=== PATIENT | female | born 1980 | race Caucasian/White ===

== ENCOUNTER 2020-01-29 05:36 | Emergency (ER) | payer BC ==
[2020-01-29 05:47] VITALS: TEMP 98.7
--- NOTE | 2020-01-29 06:02 | ED ---
Abdominal Pain HPI - General Source: patient Mode of arrival: ambulatory Limitations: no limitations - History of Present Illness MD Complaint: abdominal pain -: hour(s) Location: epigastric Radiation: none Severity: moderate Quality: aching Consistency: intermittent, now resolved Improves With: nothing Worsens With: nothing Associated Symptoms: denies other symptoms - Related Data LMP (females 10-50): last week Patient : No <Haseeb Alegria - Last Filed: 01/29/20 05:59> <Colten Cheema - Last Filed: 01/29/20 08:18> - General Chief Complaint: Abdominal Pain Stated Complaint: Abdominal pain Time Seen by Provider: 01/29/20 05:52 - History of Present Illness Initial Comments: This patient is a 39-year-old woman who presents to be evaluated for upper abdominal pain. The patient states that symptoms had started 6 days ago. She states the pain had come on in the middle of the night and awakened her. She indicates the upper abdomen mainly in the epigastric area but also somewhat to both sides of that. She is not able to characterize it well stating that it just hurts. The pain is moderately intense and tends to last for a few hours and then recurs. She states that there is no pain when she goes to sleep and that but time she gets up in the morning there is no pain. She has not had associated symptoms, no nausea, vomiting, change in bowel movements or urination. Her last menstrual period was on approximately January 12 and was normal. Patient has not noted any worsening or relieving factors. (Haseeb Alegria) - Related Data Allergies Allergy/AdvReac Type Severity Reaction Status Date / Time erythromycin base Allergy Rash/Hives Verified 01/29/20 05:47 Sulfa (Sulfonamide Allergy Rash/Hives Verified 01/29/20 05:47 Antibiotics) Review of Systems ROS Other: All systems not noted in ROS Statement are negative. Constitutional: Denies: fever, chills Respiratory: Denies: cough, dyspnea Cardiovascular: Denies: chest pain, palpitations Gastrointestinal: Reports: abdominal pain. Denies: nausea, vomiting, diarrhea, constipation, melena, hematochezia Genitourinary: Denies: urgency, dysuria, hematuria, discharge Musculoskeletal: Denies: back pain Skin: Denies: rash Neurological: Denies: headache <Haseeb Alegria - Last Filed: 01/29/20 05:59> ROS Other: All systems not noted in ROS Statement are negative. <Colten Cheema - Last Filed: 01/29/20 08:18> ROS Statement: Those systems with pertinent positive or pertinent negative responses have been documented in the HPI. Past Medical History History of Any Multi-Drug Resistant Organisms: None Reported Past Surgical History: Section Past Psychological History: No Psychological Hx Reported Smoking Status: Former smoker Past Alcohol Use History: Rare Past Drug Use History: None Reported <RajiHaseeb - Last Filed: 01/29/20 05:59> General Exam Limitations: no limitations General appearance: alert, in no apparent distress Head exam: Present: atraumatic, normocephalic Eye exam: Present: normal appearance. Absent: scleral icterus, conjunctival injection ENT exam: Present: normal oropharynx Neck exam: Present: normal inspection Respiratory exam: Present: normal lung sounds bilaterally. Absent: respiratory distress, wheezes, rales, rhonchi, stridor Cardiovascular Exam: Present: regular rate, normal rhythm, normal heart sounds. Absent: systolic murmur, diastolic murmur, rubs, gallop GI/Abdominal exam: Present: soft, tenderness, normal bowel sounds. Absent: distended, guarding, rebound, rigid, mass, pulsatile mass, hernia Extremities exam: Present: normal inspection, normal capillary refill. Absent: pedal edema, calf tenderness Back exam: Present: normal inspection. Absent: CVA tenderness (R), CVA tenderness (L) Neurological exam: Present: alert Skin exam: Present: warm, dry, intact, normal color. Absent: rash <RajiHaseeb - Last Filed: 01/29/20 05:59> Course Vital Signs 01/29/20 05:43 Temperature 98.7 F Pulse Rate 90 Respiratory 18 Rate Blood Pressure 164/97 O2 Sat by Pulse 98 Oximetry Medical Decision Making - Lab Data Result diagrams: 01/29/20 06:27 01/29/20 06:27 - Radiology Data Radiology results: report reviewed (Doppler ultrasound suspicious for sludge) <Colten Cheema - Last Filed: 01/29/20 08:18> - Medical Decision Making Patient reevaluated by myself, Dr. Cheema. Patient resting comfortably in bed, symptoms never resolved. Abdomen soft with minimal tenderness in the epigastric region. Results and ultrasound reviewed. Patient updated. Patient is comfortable with discharge home and would prefer to be discharged rather than discussing any further intervention at this point. Dorsalis pedis pulses 2/4 bilateral. (Colten Cheema) - Lab Data Lab Results 01/29/20 01/29/20 01/29/20 Range/Units 06:27 06:27 06:47 WBC 13.0 H (3.8-10.6) k/uL RBC 4.36 (3.80-5.40) m/uL Hgb 12.7 (11.4-16.0) gm/dL Hct 39.8 (34.0-46.0) % MCV 91.3 (80.0-100.0) fL MCH 29.2 (25.0-35.0) pg MCHC 32.0 (31.0-37.0) g/dL RDW 13.0 (11.5-15.5) % Plt Count 356 (150-450) k/uL Neutrophils % 75 % Lymphocytes % 18 % Monocytes % 3 % Eosinophils % 2 % Basophils % 0 % Neutrophils # 9.7 H (1.3-7.7) k/uL Lymphocytes # 2.4 (1.0-4.8) k/uL Monocytes # 0.4 (0-1.0) k/uL Eosinophils # 0.3 (0-0.7) k/uL Basophils # 0.0 (0-0.2) k/uL Sodium 138 (137-145) mmol/L Potassium 4.9 (3.5-5.1) mmol/L Chloride 106 (98-107) mmol/L Carbon Dioxide 20 L (22-30) mmol/L Anion Gap 12 mmol/L BUN 18 H (7-17) mg/dL Creatinine 0.72 (0.52-1.04) mg/dL Est GFR (CKD-EPI)AfAm >90 (>60 ml/min/1.73 sqM) Est GFR (CKD-EPI)NonAf >90 (>60 ml/min/1.73 sqM) Glucose 105 H (74-99) mg/dL Calcium 9.8 (8.4-10.2) mg/dL Total Bilirubin 0.3 (0.2-1.3) mg/dL AST 25 (14-36) U/L ALT 18 (4-34) U/L Alkaline Phosphatase 68 (38-126) U/L Total Protein 8.2 (6.3-8.2) g/dL Albumin 4.5 (3.5-5.0) g/dL Urine Color Yellow Urine Appearance Cloudy H (Clear) Urine pH 5.0 (5.0-8.0) Ur Specific [place] 1.026 (1.001-1.035) Urine Protein Negative (Negative) Urine Glucose (UA) Negative (Negative) Urine Ketones Negative (Negative) Urine Blood Negative (Negative) Urine Nitrite Negative (Negative) Urine Bilirubin Negative (Negative) Urine Urobilinogen <2.0 (<2.0) mg/dL Ur Leukocyte Esterase Negative (Negative) Urine RBC 2 (0-5) /hpf Urine WBC 1 (0-5) /hpf Ur Squamous Epith Cells 3 (0-4) /hpf Urine Mucus Rare H (None) /hpf Urine HCG, Qual (Not Detectd) 01/29/20 Range/Units 06:47 WBC (3.8-10.6) k/uL RBC (3.80-5.40) m/uL Hgb (11.4-16.0) gm/dL Hct (34.0-46.0) % MCV (80.0-100.0) fL MCH (25.0-35.0) pg MCHC (31.0-37.0) g/dL RDW (11.5-15.5) % Plt Count (150-450) k/uL Neutrophils % % Lymphocytes % % Monocytes % % Eosinophils % % Basophils % % Neutrophils # (1.3-7.7) k/uL Lymphocytes # (1.0-4.8) k/uL Monocytes # (0-1.0) k/uL Eosinophils # (0-0.7) k/uL Basophils # (0-0.2) k/uL Sodium (137-145) mmol/L Potassium (3.5-5.1) mmol/L Chloride (98-107) mmol/L Carbon Dioxide (22-30) mmol/L Anion Gap mmol/L BUN (7-17) mg/dL Creatinine (0.52-1.04) mg/dL Est GFR (CKD-EPI)AfAm (>60 ml/min/1.73 sqM) Est GFR (CKD-EPI)NonAf (>60 ml/min/1.73 sqM) Glucose (74-99) mg/dL Calcium (8.4-10.2) mg/dL Total Bilirubin (0.2-1.3) mg/dL AST (14-36) U/L ALT (4-34) U/L Alkaline Phosphatase (38-126) U/L Total Protein (6.3-8.2) g/dL Albumin (3.5-5.0) g/dL Urine Color Urine Appearance (Clear) Urine pH (5.0-8.0) Ur Specific [place] (1.001-1.035) Urine Protein (Negative) Urine Glucose (UA) (Negative) Urine Ketones (Negative) Urine Blood (Negative) Urine Nitrite (Negative) Urine Bilirubin (Negative) Urine Urobilinogen (<2.0) mg/dL Ur Leukocyte Esterase (Negative) Urine RBC (0-5) /hpf Urine WBC (0-5) /hpf Ur Squamous Epith Cells (0-4) /hpf Urine Mucus (None) /hpf Urine HCG, Qual Not Detected (Not Detectd) Disposition <Haseeb Alegria - Last Filed: 01/29/20 05:59> Is patient prescribed a controlled substance at d/c from ED?: No Time of Disposition: 08:18 <Colten Cheema - Last Filed: 01/29/20 08:18> Clinical Impression: Biliary colic, Epigastric pain Disposition: HOME SELF-CARE Condition: Stable Instructions (If sedation given, give patient instructions): Biliary Colic (ED), Gallstones (ED), Acute Abdominal Pain (ED) Additional Instructions: [id number] Pepcid. Please follow-up with surgeon hydration plant operator in the next couple days for recheck, number provided. Return for increased pain, vomiting, fevers, worsening symptoms or other concerns. Avoid high fat foods. Avoid large meals. Referrals: Ofe Vickers DO [Doctor of Osteopathic Medicine] - 1-2 days Power Salguero [STAFF PHYSICIAN] - 1-2 days
[2020-01-29 06:42] LABS: Basophils % (A) 0 %; Eosinophils # (A) 0.3 k/uL (0-0.7); Eosinophils % (A) 2 %; HCT 39.8 % (34.0-46.0); HGB 12.7 gm/dL (11.4-16.0); Lymphocytes # (A) 2.4 k/uL (1.0-4.8); Lymphocytes % (A) 18 %; MCH 29.2 pg (25.0-35.0); MCV 91.3 fL (80.0-100.0); Mean Platelet Volume 7.2; Monocytes # (A) 0.4 k/uL (0-1.0); Monocytes % (A) 3 %; Neutrophils # (A) 9.7 k/uL (1.3-7.7); Neutrophils % (A) 75 %; Platelet Count 356 k/uL (150-450); RBC 4.36 m/uL (3.80-5.40)
[2020-01-29 06:50] LABS: Appearance,Urine Cloudy (Clear); Bilirubin,Urine Negative (Negative); Blood,Urine Negative (Negative); Color,Urine Yellow; Glucose,Urine (UA) Negative (Negative); Ketones,Urine Negative (Negative); Leukocyte Esterase,Urine Negative (Negative); Mucus,Urine Rare /hpf; Nitrite,Urine Negative (Negative); Protein,Urine Negative (Negative); RBC,Urine 2 /hpf (0-5); Specific Gravity,Urine 1.026 (1.001-1.035); Squamous Epithelial Cell,Urine 3 /hpf (0-4); Urobilinogen,Urine <2.0 mg/dL (<2.0); WBC,Urine 1 /hpf (0-5)
[2020-01-29 06:52] LABS: ALT 18 U/L (4-34); AST 25 U/L (14-36); African American GFR (CKD) >90 (>60 ml/min/1.73 sqM); Albumin 4.5 g/dL (3.5-5.0); Alkaline Phosphatase 68 U/L (38-126); Anion Gap 12 mmol/L; Blood Urea Nitrogen 18 mg/dL (7-17); Calcium 9.8 mg/dL (8.4-10.2); Carbon Dioxide 20 mmol/L (22-30); Chloride 106 mmol/L (98-107); Glucose 105 mg/dL (74-99); Non-African American GFR(CKD) >90 (>60 ml/min/1.73 sqM); Potassium 4.9 mmol/L (3.5-5.1); Sodium 138 mmol/L (137-145); Total Bilirubin 0.3 mg/dL (0.2-1.3); Total Protein 8.2 g/dL (6.3-8.2)
--- NOTE | 2020-01-29 08:07 | US ---
EXAMINATION TYPE: US abdomen limited DATE OF EXAM: 01/29/2020 COMPARISON: NONE CLINICAL HISTORY: Attention RUQ, suspect biliary dz. Intermittent abdomen pain and N/V x 4 days, symp toms only happen at night EXAM MEASUREMENTS: Liver Length: 14.8 cm Gallbladder Wall: 0.3 cm CBD: 0.3 cm Right Kidney: 9.0 x 4.0 x 4.6 cm Pancreas: visualized portions wnl, limited by overlying bowel gas Liver: wnl Gallbladder: low level echoes seen, possible sludge, wall borderline thickened at 0.3cm Evidence for sonographic Malagon's sign: no CBD: visualized portions wnl, limited by overlying bowel gas Right Kidney: wnl The pancreas is poorly visualized. The liver is normal in size without biliary dilatation. There are low level echoes within the gallbladder but no definite sludge or calculi are seen. The gal lbladder wall is upper limits of normal at 3 mm. The distal common hepatic duct measures 3 mm. There is no sonographic Malagon's sign. The right kidney is unremarkable. IMPRESSION: LOW-LEVEL ECHOES WITHIN THE GALLBLADDER MAY REPRESENT MINIMAL SLUDGE. NO CALCULI ARE SEEN.
[2020-01-29 08:29] VITALS: BP 132/76; PULSE 88; RESP 16
== END 2020-01-29 08:28 | disposition home or self-care (01) ==
LOC: EC 05:36
DX: K80.50 Calculus of bile duct without cholangitis or cholecystitis without obstruction (principal); Z87.891 Personal history of nicotine dependence; Z88.1 Allergy status to other antibiotic agents; Z88.2 Allergy status to sulfonamides
CPT/HCPCS: 36415; 76705; 80053; 81001; 81025; 85025; 99284

== ENCOUNTER 2023-06-02 03:50 | Emergency (ER) | payer BC ==
[2023-06-02 03:59] VITALS: TEMP 97.7
[2023-06-02] MEDS ORDERED: SODIUM CHLORIDE 0.9% 1,000 ML IV STA (04:23)
[2023-06-02] MEDS ORDERED: ONDANSETRON 4 MG/2 ML VIAL IVP STA (04:23)
[2023-06-02] MEDS ORDERED: KETOROLAC 15 MG/ML 1 ML VIAL IVP STA (04:23)
--- NOTE | 2023-06-02 04:25 | ED ---
Abdominal Pain HPI - General Source: patient, RN notes reviewed, old records reviewed Mode of arrival: ambulatory Limitations: no limitations - History of Present Illness MD Complaint: abdominal pain -: hour(s) Location: LUQ, RUQ, epigastric Radiation: none Migration to: epigastric Severity: moderate Severity scale (1-10): 7 Quality: fullness, sharp Consistency: intermittent Improves With: nothing Worsens With: nothing Associated Symptoms: nausea Treatments Prior to Arrival: other (0) <Delgado Curiel - Last Filed: 06/02/23 06:12> <Pietro Toro - Last Filed: 06/02/23 08:11> - General Chief Complaint: Abdominal Pain Stated Complaint: Abd Pain Time Seen by Provider: 06/02/23 04:22 - History of Present Illness Initial Comments: This is a 42-year-old female DF for evaluation today. Patient presents today for evaluation of severe abdominal pain epigastric abdominal pain left upper quadrant abdominal pain positive nausea with nausea vomiting no travel show sick contacts no other complaints. No fevers. Patient has history of gallbladder issues in the past as well as gastritis and ulcers. This feels similar to those episodes of pain but much worse. Most recent episode occurred about 3 years ago. (Delgado Curiel) - Related Data Allergies Allergy/AdvReac Type Severity Reaction Status Date / Time erythromycin base Allergy Rash/Hives Verified 06/02/23 03:59 Sulfa (Sulfonamide Allergy Rash/Hives Verified 06/02/23 03:59 Antibiotics) Review of Systems ROS Other: All systems not noted in ROS Statement are negative. <Delgado Curiel - Last Filed: 06/02/23 06:12> ROS Other: All systems not noted in ROS Statement are negative. <Pietro Toro - Last Filed: 06/02/23 08:11> ROS Statement: Those systems with pertinent positive or pertinent negative responses have been documented in the HPI. Past Medical History Past Medical History: No Reported History History of Any Multi-Drug Resistant Organisms: None Reported Past Surgical History: Section Past Psychological History: Anxiety Smoking Status: Never smoker Past Alcohol Use History: Rare Past Drug Use History: None Reported <Delgado Curiel - Last Filed: 06/02/23 06:12> General Exam Limitations: no limitations General appearance: alert, in no apparent distress Head exam: Present: atraumatic, normocephalic, normal inspection Eye exam: Present: normal appearance, PERRL, EOMI. Absent: scleral icterus, conjunctival injection, periorbital swelling ENT exam: Present: normal exam, mucous membranes moist Neck exam: Present: normal inspection. Absent: tenderness, meningismus, lym phadenopathy Respiratory exam: Present: normal lung sounds bilaterally. Absent: respiratory distress, wheezes, rales, rhonchi, stridor Cardiovascular Exam: Present: regular rate, normal rhythm, normal heart sounds. Absent: systolic murmur, diastolic murmur, rubs, gallop, clicks GI/Abdominal exam: Present: soft, normal bowel sounds. Absent: distended, tenderness, guarding, rebound, rigid Extremities exam: Present: normal inspection, full ROM, normal capillary refill. Absent: tenderness, pedal edema, joint swelling, calf tenderness Back exam: Present: normal inspection Neurological exam: Present: alert, oriented X3, CN II-XII intact Psychiatric exam: Present: normal affect, normal mood Skin exam: Present: warm, dry, intact, normal color. Absent: rash <Delgado Curiel - Last Filed: 06/02/23 06:12> Course <Delgado Curiel - Last Filed: 06/02/23 06:12> Vital Signs 06/02/23 06/02/23 06/02/23 03:58 06:15 07:52 Temperature 97.7 F Pulse Rate 86 72 71 Respiratory 18 16 18 Rate Blood Pressure 137/77 119/90 109/67 O2 Sat by Pulse 98 97 98 Oximetry - Reevaluation(s) Reevaluation #1: 06/02/23 06:13 Medical record is reviewed. (Delgado Curiel) Reevaluation #2: 06/02/23 06:13 Patient symptoms are improved (Delgado Curiel) Reevaluation #3: 06/02/23 06:13 Patient informed results questions answered (Delgado Curiel) Medical Decision Making - Lab Data Result diagrams: 06/02/23 05:07 <Delgado Curiel - Last Filed: 06/02/23 06:12> - Lab Data Result diagrams: 06/02/23 05:07 06/02/23 06:12 <Pietro Toro N - Last Filed: 06/02/23 08:11> - Medical Decision Making Was pt. sent in by a medical professional or institution (DENI Sanches, RELAY CHECKER, urgent care, hospital, or senior care...) When possible be specific @ -No Did you speak to anyone other than the patient for history (EMS, parent, family, police, friend...)? What history was obtained from this source @ -No Did you review nursing and triage notes (agree or disagree)? Why? @ -I reviewed and agree with nursing and triage notes Were old charts reviewed (outside hosp., previous admission, EMS record, old EKG, old radiological studies, urgent care reports/EKG's, senior care records)? Report findings @ -No old charts were reviewed Differential Diagnosis (chest pain, altered mental status, abdominal pain women, abdominal pain men, vaginal bleeding, weakness, fever, dyspnea, syncope, headache, dizziness, GI bleed, back pain, seizure, CVA, palpatations, mental health, musculoskeletal)? @ Differential Abdominal Pain Women: Appendicitis, Cholecystitis, diverticulosis, ischemic bowel, pancreatitis, hepatitis, UTI, gastroenteritis, AAA, incarcerated hernia, bowel obstruction, constipation, inflammatory bowel, hepatitis, peptic ulcer disease, splenic infarction, perforated viscus, vulvitis, ovarian torsion, PID, kidney stone, placenta abruption, this is not meant to be an all-inclusive list EKG interpreted by me (3pts min.). @ -As above X-rays interpreted by me (1pt min.). @ -None done CT interpreted by me (1pt min.). @ -CT abdomen pelvis without acute abnormality U/S interpreted by me (1pt. min.). @ -[Ultrasound showing stone in the gallbladder neck no pericholecystic fluid, no wall thickening What testing was considered but not performed or refused? (CT, X-rays, U/S, labs)? Why? @ -None What meds were considered but not given or refused? Why? @ -None Did you discuss the management of the patient with other professionals (professionals i.e. DENI Sanches, RELAY CHECKER, lab, RT, psych nurse, social media assistant, charge machine operator, teacher, grant officer, casework supervisor)? Give summary @ -No Was smoking cessation discussed for >3mins.? @ -No Was critical care preformed (if so, how long)? @ -No Were there social determinants of health that impacted care today? How? (Homelessness, low income, unemployed, alcoholism, drug addiction, transportation, low edu. Level, literacy, decrease access to med. care, correction, rehab)? @ -No Was there de-escalation of care discussed even if they declined (Discuss DNR or withdrawal of care, Hospice)? DNR status @ -No What co-morbidities impacted this encounter? (DM, HTN, Smoking, COPD, CAD, Ca ncer, CVA, ARF, Chemo, Hep., AIDS, mental health diagnosis, sleep apnea, morbid obesity)? @ -None Was patient admitted / discharged? Hospital course, mention meds given and route, prescriptions, significant lab abnormalities, going to OR and other pertinent info. @ Patient's care was signed out at shift change awaiting ultrasound imaging of the gallbladder. There is a gallstone in the gallbladder neck without signs of acute cholecystitis. I did reevaluate the patient she is resting comfortably. No vomiting. Pain is resolved. She is nontender nondistended on exam. She is felt to be stable for outpatient referral to general surgery. Strict return parameters including worsening pain, vomiting or fever. Undiagnosed new problem with uncertain prognosis? @ -No Drug Therapy requiring intensive monitoring for toxicity (Heparin, Nitro, Insulin, Cardizem)? @ -No Were any procedures done? @ -No Diagnosis/symptom? @ -Symptomatic gallstone Acute, or Chronic, or Acute on Chronic? @ -Acute Uncomplicated (without systemic symptoms) or Complicated (systemic symptoms)? @ -default Side effects of treatment? @ -No Exacerbation, Progression, or Severe Exacerbation? @ -No Poses a threat to life or bodily function? How? (Chest pain, USA, IA, pneumonia, PE, COPD, DKA, ARF, appy, cholecystitis, CVA, Diverticulitis, Homicidal, Suicidal, threat to staff... and all critical care pts) @ -[Low risk at this time (Pietro Toro) - Lab Data Lab Results 06/02/23 06/02/23 06/02/23 Range/Units 05:07 05:07 06:12 WBC 8.9 (3.8-10.6) k/uL RBC 4.52 (3.80-5.40) m/uL Hgb 13.3 (11.4-16.0) gm/dL Hct 40.5 (34.0-46.0) % MCV 89.5 (80.0-100.0) fL MCH 29.5 (25.0-35.0) pg MCHC 33.0 (31.0-37.0) g/dL RDW 13.0 (11.5-15.5) % Plt Count 398 (150-450) k/uL MPV 7.7 Neutrophils % 56 % Lymphocytes % 31 % Monocytes % 6 % Eosinophils % 5 % Basophils % 1 % Neutrophils # 5.0 (1.3-7.7) k/uL Lymphocytes # 2.8 (1.0-4.8) k/uL Monocytes # 0.5 (0-1.0) k/uL Eosinophils # 0.4 (0-0.7) k/uL Basophils # 0.0 (0-0.2) k/uL Sodium 136 L (137-145) mmol/L Potassium 4.6 (3.5-5.1) mmol/L Chloride 107 (98-107) mmol/L Carbon Dioxide 21 L (22-30) mmol/L Anion Gap 8 mmol/L BUN 17 (7-17) mg/dL Creatinine 0.79 (0.52-1.04) mg/dL Est GFR (CKD-EPI)AfAm >90 (>60 ml/min/1.73 sqM) Est GFR (CKD-EPI)NonAf >90 (>60 ml/min/1.73 sqM) Glucose 89 (74-99) mg/dL Calcium 8.4 (8.4-10.2) mg/dL Total Bilirubin 0.5 (0.2-1.3) mg/dL AST 33 (14-36) U/L ALT 20 (4-34) U/L Alkaline Phosphatase 53 (38-126) U/L Total Protein 7.1 (6.3-8.2) g/dL Albumin 3.9 (3.5-5.0) g/dL Amylase 61 (30-110) U/L Lipase 87 (23-300) U/L Urine Color Yellow Urine Appearance Clear (Clear) Urine pH 6.5 (5.0-8.0) Ur Specific [place] 1.015 (1.001-1.035) Urine Protein Negative (Negative) Urine Glucose (UA) Negative (Negative) Urine Ketones Negative (Negative) Urine Blood Negative (Negative) Urine Nitrite Negative (Negative) Urine Bilirubin Negative (Negative) Urine Urobilinogen <2.0 (<2.0) mg/dL Ur Leukocyte Esterase Negative (Negative) Disposition <Delgado Curiel B - Last Filed: 06/02/23 06:12> Is patient prescribed a controlled substance at d/c from ED?: No Time of Disposition: 08:10 <Pietro Toro - Last Filed: 06/02/23 08:11> Clinical Impression: Abdominal pain, Biliary colic, Gallstone Disposition: HOME SELF-CARE Condition: Good Instructions (If sedation given, give patient instructions): Biliary Colic (ED ), Gallstones (ED) Referrals: Roosevelt Rodrigues MD [Primary Care Provider] - 1-2 days Daniel Chase MD [Medical Doctor] - 1-2 days
[2023-06-02 05:59] LABS: Basophils % (A) 1 %; Eosinophils # (A) 0.4 k/uL (0-0.7); Eosinophils % (A) 5 %; HCT 40.5 % (34.0-46.0); HGB 13.3 gm/dL (11.4-16.0); Lymphocytes # (A) 2.8 k/uL (1.0-4.8); Lymphocytes % (A) 31 %; MCH 29.5 pg (25.0-35.0); MCV 89.5 fL (80.0-100.0); Mean Platelet Volume 7.7; Monocytes # (A) 0.5 k/uL (0-1.0); Monocytes % (A) 6 %; Neutrophils % (A) 56 %; Platelet Count 398 k/uL (150-450); RBC 4.52 m/uL (3.80-5.40); WBC 8.9 k/uL (3.8-10.6)
[2023-06-02 06:04] LABS: Appearance,Urine Clear (Clear); Bilirubin,Urine Negative (Negative); Blood,Urine Negative (Negative); Color,Urine Yellow; Glucose,Urine (UA) Negative (Negative); Ketones,Urine Negative (Negative); Leukocyte Esterase,Urine Negative (Negative); Nitrite,Urine Negative (Negative); PH, Urine 6.5 (5.0-8.0); Protein,Urine Negative (Negative); Specific Gravity,Urine 1.015 (1.001-1.035); Urobilinogen,Urine <2.0 mg/dL (<2.0)
[2023-06-02 06:33] LABS: ALT 20 U/L (4-34); AST 33 U/L (14-36); African American GFR (CKD) >90 (>60 ml/min/1.73 sqM); Albumin 3.9 g/dL (3.5-5.0); Alkaline Phosphatase 53 U/L (38-126); Amylase 61 U/L (30-110); Anion Gap 8 mmol/L; Blood Urea Nitrogen 17 mg/dL (7-17); Calcium 8.4 mg/dL (8.4-10.2); Carbon Dioxide 21 mmol/L (22-30); Chloride 107 mmol/L (98-107); Glucose 89 mg/dL (74-99); Lipase 87 U/L (23-300); Non-African American GFR(CKD) >90 (>60 ml/min/1.73 sqM); Potassium 4.6 mmol/L (3.5-5.1); Sodium 136 mmol/L (137-145); Total Bilirubin 0.5 mg/dL (0.2-1.3); Total Protein 7.1 g/dL (6.3-8.2)
--- NOTE | 2023-06-02 07:20 | CT ---
EXAMINATION TYPE: CT abdomen pelvis w con CT DLP: 843 mGycm, Automated exposure control for dose reduction was used. DATE OF EXAM: 06/02/2023 6:47 AM COMPARISON: Gallbladder ultrasound same day CLINICAL INDICATION:Female, 42 years old with history of abdominal pain; LUQ pain TECHNIQUE: Axial CT of the abdomen and pelvis. Sagittal and coronal reformats were created on a [employer] workstation. Contrast used:100 mL of Isovue 300 with IV Contrast, (none if empty) Oral contrast used: without Oral Contrast (none if empty) FINDINGS: LOWER CHEST: Unremarkable ABDOMEN LIVER: Unremarkable GALLBLADDER AND BILE DUCTS: Unremarkable. PANCREAS: Unremarkable. SPLEEN: Unremarkable. ADRENAL GLANDS: Unremarkable. KIDNEYS AND URETERS: No evidence of hydronephrosis or renal calculus. The ureters are unremarkable. PELVIS BLADDER: Unremarkable REPRODUCTIVE: Retroverted uterus. ABDOMEN & PELVIS STOMACH AND BOWEL: No evidence of bowel obstruction. PERITONEUM/RETROPERITONEUM: No evidence of pneumoperitoneum or free fluid. VASCULATURE: No evidence of aortic aneurysm. MUSCULOSKELETAL: No acute osseous abnormalities LYMPH NODES: No gross evidence for lymphadenopathy. SOFT TISSUE/ABDOMINAL WALL: Fat-containing umbilical hernia. IMPRESSION: No evidence for acute left upper quadrant process to explain the patient's pain.
--- NOTE | 2023-06-02 07:50 | US ---
EXAMINATION TYPE: US gallbladder DATE OF EXAM: 06/02/2023 COMPARISON: NONE CLINICAL INDICATION: Female, 42 years old with history of pain; abd pain for the past week TECHNIQUE: Multiple sonographic images of the right upper quadrant are obtained. FINDINGS: EXAM MEASUREMENTS: Liver Length: 14.2 cm Gallbladder Wall: 0.2 cm CBD: 0.7 cm Right Kidney: 9.4 x 4.2 x 5.5 cm Pancreas: wnl Liver: wnl Gallbladder: 1.6cm neck stone that did not move when rolling , no evidence for pericholecystic fluid or wall thickening. Evidence for sonographic Malagon's sign: no CBD: wnl Right Kidney: wnl IMPRESSION: Gallbladder stone in the gallbladder neck which was nonmobile.
[2023-06-02 07:53] VITALS: BP 109/67; PULSE 71; RESP 18
== END 2023-06-02 08:21 | disposition home or self-care (01) ==
LOC: EC 03:50
DX: K80.70 Calculus of gallbladder and bile duct without cholecystitis without obstruction (principal); Z86.59 Personal history of other mental and behavioral disorders; Z88.2 Allergy status to sulfonamides; Z88.6 Allergy status to analgesic agent
CPT/HCPCS: 36415; 80053; 82150; 83690; 85025; 81003; 76705; 74177; 99284; 96374; 96375; J2405; J1885; Q9967